=== PATIENT | female | born 1930 | race Caucasian/White ===

== ENCOUNTER 2020-01-27 09:33 | Day surgery (SDC) | payer MEDICARE, BC ==
[~2020-01-27 09:33] MED LIST: Acetaminophen 325 MG Tab PO PRN; Cataract Ophth Solution EYELF ONE; Moxifloxacin 0.5% Ophth Soln 3 ML Bottle EYELF ONE; Ondansetron 4 MG/2 ML SDV IVPUSH PRN; Phenylephrine 10% Ophth Soln 5 ML Bot EYELF ONE; Phenylephrine 10% Ophth Soln 5 ML Bot EYELF PRN; Povidone-Iodine 5% Sterile Ophth Soln 30 ML Bottle EYELF ONE; Proparacaine 0.5% Ophth Soln 15 ML Bottle EYELF ONE; Sodium Chloride 0.9% 10 ML Syringe FLUSH PRN; Timolol Maleate 0.5% Ophth Soln 5 ML Bottle EYELF ONE; Tropicamide 1% Ophth Soln 15 ML Bottle EYELF ONE
[2020-01-27] MEDS ORDERED: Povidone-Iodine 5% Sterile Ophth Soln 30 ML Bottle EYELF ONE (10:56)
[2020-01-27] MEDS ORDERED: Tetracaine HCl/PF 0.5% 4 ML Bottle EYELF ONE (10:56)
== END 2020-01-27 12:10 | disposition home or self-care (01) ==
LOC: DL.SDS 09:33
PROVIDERS: ATTEND Ophthalmology
DX: H25.813 Combined forms of age-related cataract, bilateral (principal); Z53.8 Procedure and treatment not carried out for other reasons; I12.9 Hypertensive chronic kidney disease with stage 1 through stage 4 chronic kidney disease, or unspecified chronic kidney disease; N18.30 Chronic kidney disease, stage 3 unspecified; I48.0 Paroxysmal atrial fibrillation; K59.00 Constipation, unspecified; N39.0 Urinary tract infection, site not specified; B96.89 Other specified bacterial agents as the cause of diseases classified elsewhere; Z79.899 Other long term (current) drug therapy; Z88.0 Allergy status to penicillin; Z88.2 Allergy status to sulfonamides; Z88.8 Allergy status to other drugs, medicaments and biological substances; Z96.659 Presence of unspecified artificial knee joint; H35.3231 Exudative age-related macular degeneration, bilateral, with active choroidal neovascularization; H52.13 Myopia, bilateral; H52.209 Unspecified astigmatism, unspecified eye

== ENCOUNTER 2020-02-03 10:11 | Day surgery (SDC) | payer MEDICARE, BC ==
[2020-02-03] MEDS ORDERED: Midazolam 1 MG/ML 2 ML SDV IV ONE (10:12)
[2020-02-03] MEDS ORDERED: Sodium Chloride 0.9% 10 ML Syringe IV ONE (10:12)
[2020-02-03] MEDS ORDERED: Dexamethasone 4 MG/ML SDV IV ONE (10:12)
[2020-02-03] MEDS ORDERED: Moxifloxacin 0.5% Ophth Soln 3 ML Bottle EYELF ONE (10:15)
[2020-02-03] MEDS ORDERED: Proparacaine 0.5% Ophth Soln 15 ML Bottle EYELF ONE (10:15)
[2020-02-03] MEDS ORDERED: Cataract Ophth Solution EYELF ONE (10:15)
[2020-02-03] MEDS ORDERED: Phenylephrine 10% Ophth Soln 5 ML Bot EYELF ONE (10:15)
[2020-02-03] MEDS ORDERED: Sodium Chloride 0.9% 10 ML Syringe FLUSH PRN (10:15)
[2020-02-03] MEDS ORDERED: Phenylephrine 10% Ophth Soln 5 ML Bot EYELF PRN (10:15)
[2020-02-03] MEDS ORDERED: Acetaminophen 325 MG Tab PO PRN (10:15)
[2020-02-03] MEDS ORDERED: Timolol Maleate 0.5% Ophth Soln 5 ML Bottle EYELF ONE (10:15)
[2020-02-03] MEDS ORDERED: Povidone-Iodine 5% Sterile Ophth Soln 30 ML Bottle EYELF ONE ×2 (10:15→11:22)
[2020-02-03] MEDS ORDERED: Ondansetron 4 MG/2 ML SDV IVPUSH PRN (10:15)
[2020-02-03] MEDS ORDERED: Tropicamide 1% Ophth Soln 15 ML Bottle EYELF ONE (10:15)
[2020-02-03] MEDS ORDERED: Tetracaine HCl/PF 0.5% 4 ML Bottle EYELF ONE (11:21)
[2020-02-03] MEDS ORDERED: Lidocaine 1% 30 ML SDV ONE (11:21)
[2020-02-03] MEDS ORDERED: Apraclonidine 0.5% Ophth Soln 5 ML Bot EYELF ONE (11:22)
[2020-02-03] MEDS ORDERED: Dexamethasone/Tobramycin 0.1-0.3% Ophth Oint 3.5 GM Tube EYELF ONE (11:22)
[2020-02-03] MEDS ORDERED: Diclofenac Sodium 0.1% Ophth Soln 5 ML Bottle EYELF ONE (11:22)
[2020-02-03] MEDS ORDERED: Chondroitin Sulfate/Hyaluronate Sodium Ophth Inj 0.75 ML Syringe EYELF ONE (11:23)
[2020-02-03] MEDS ORDERED: Vancomycin 500 MG SDV EYELF ONE (11:23)
[2020-02-03] MEDS ORDERED: Balanced Salt Solution Ophth Irrig 500 ML Bottle IOCULAR ONE (11:23)
[2020-02-03] MEDS ORDERED: Dexamethasone 4 MG/ML SDV ONE (11:28)
--- NOTE | 2020-02-04 10:29 | OR ---
DATE: 02/03/2020 PREOPERATIVE DIAGNOSIS: Visually significant mixed cataract, left eye. POSTOPERATIVE DIAGNOSIS: Visually significant mixed cataract, left eye. PROCEDURE: Extracapsular cataract extraction with intraocular lens implant, left eye. ANESTHESIA: Topical/local MAC. COMPLICATIONS: None. INDICATION: Ms. Roa was seen in the clinic. Examination revealed advanced cataract. I explained options, offered cataract surgery, and I explained risks, including, but not limited to, infection, retinal detachment, loss of vision, need for additional surgery, and risks associated with anesthesia. She also has a history of age-related macular degeneration. I explained that her ultimate visual potential would be limited by retinal health. 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 OPERATIVE DESCRIPTION: After informed consent was obtained and the risks, benefits, and alternatives were explained, the patient was brought to the operative suite and topical anesthesia was administered. The patient was then prepped and draped in the sterile fashion and attention was placed on the left eye. A sterile lid speculum was placed into the left eye to allow operative exposure. A full-thickness paracentesis was made in the temporal portion of the operative eye. Preservative-free lidocaine 0.1 mL was injected into the anterior chamber followed by viscoelastic. A full-thickness corneal incision was then made into the anterior chamber. A bent needle cystotome was used to create a small benny in the anterior capsule. The capsulorrhexis forceps was then used to create a 360-degree curvilinear capsulorrhexis. The nucleus was then removed using a phacoemulsification handpiece and the remaining cortical material was then removed with irrigation and aspiration handpiece. Following removal of the cortical material, the capsular bag was then inspected and noted to be free of any holes or tears. Viscoelastic was then injected into the capsular bag and the intraocular lens was inserted into the capsular bag. The implant was oriented to correspond with preoperative corneal garcia made with the patient in the upright position. The viscoelastic material was then removed from both the anterior and posterior chambers and from behind the IOL. The lens and capsular bag were then reinspected. The IOL was well centered and the capsular bag intact. The wound and paracentesis sites were inspected and hydrated with balanced saline solution. Both were found to be self-sealing. The intraocular pressure was assessed digitally and found to be within normal range. A good red reflex was noted at the completion of the procedure. No complications occurred during the operation. At the completion of the procedure, Maxitrol, Voltaren, and Iopidine drops were placed into the operative eye. A sterile eye shield was placed over the operative eye and the patient was transported to the postoperative recovery area having tolerated the procedure well. Postoperative instructions were given along with a postoperative appointment. The patient was advised to call with any questions or concerns. [facility] /[id number]
== END 2020-02-03 12:40 | disposition home or self-care (01) ==
LOC: DL.SDS 10:11
PROVIDERS: ATTEND Ophthalmology
DX: H25.813 Combined forms of age-related cataract, bilateral (principal); I12.9 Hypertensive chronic kidney disease with stage 1 through stage 4 chronic kidney disease, or unspecified chronic kidney disease; N18.30 Chronic kidney disease, stage 3 unspecified; Z79.899 Other long term (current) drug therapy; Z88.0 Allergy status to penicillin; Z88.2 Allergy status to sulfonamides; Z88.8 Allergy status to other drugs, medicaments and biological substances; Z96.659 Presence of unspecified artificial knee joint; I48.0 Paroxysmal atrial fibrillation; K59.00 Constipation, unspecified; N39.0 Urinary tract infection, site not specified; B96.89 Other specified bacterial agents as the cause of diseases classified elsewhere; N39.46 Mixed incontinence; H40.1121 Primary open-angle glaucoma, left eye, mild stage; H40.1111 Primary open-angle glaucoma, right eye, mild stage; H52.13 Myopia, bilateral; H52.203 Unspecified astigmatism, bilateral; H35.3231 Exudative age-related macular degeneration, bilateral, with active choroidal neovascularization; E66.9 Obesity, unspecified; Z68.25 Body mass index [BMI] 25.0-25.9, adult
CPT/HCPCS: 00142; 66984; A9270; J1100; J2001; J2250; J3370; V2787